=== PATIENT | male | born 1990 | race Two or more races ===

== ENCOUNTER 2017-07-26 09:23 | Inpatient (IN) | payer SELFPAY ==
[2017-07-26] MEDS ORDERED: NS 0.9% 1000 ML* 1,000 ML IV ONE (10:32)
[2017-07-26 11:03] LABS: ABS Basophils 0 10^3/ul (0-0.2); ABS Eosinophils 0.1 10^3/ul (0-0.6); ABS Monocytes 0.4 10^3/ul (0-0.8); ABS Neutrophils 5.1 10^3/ul (1.5-7.7); ABS Nucleated RBC 0 10^3/ul; Eosinophil % 1.7 % (0-6); Hematocrit 42 % (42-52); Hemoglobin 15.2 g/dl (14.0-18.0); Lymphocyte % 14.8 % (25-47); Mean Corpuscular HGB Conc 36 g/dl (31-36); Mean Corpuscular Hemoglobin 31 pg (27-31); Mean Corpuscular Volume 86 fL (80-94); Mean Platelet Volume 8.3 um3 (7.4-10.4); Nucleated Red Blood Cells % 0.4; Platelet Count 189 10^3/ul (150-450); Red Blood Count 4.92 10^6/ul (4.0-5.4); Red Cell Distribution Width 13 % (10.5-15); White Blood Count 6.6 10^3/ul (3.5-10.8)
--- NOTE | 2017-07-26 12:13 | RAD ---
HISTORY: Left thumb infection, right thumb injury COMPARISONS: None VIEWS: 2, Frontal and lateral views of the right hand FINDINGS: BONE DENSITY: Normal. BONES: There is no displaced fracture. There is no appreciable erosion or periosteal reaction. JOINTS: There is no arthropathy. ALIGNMENT: There is no dislocation. SOFT TISSUES: There is soft tissue swelling of the first digit. OTHER FINDINGS: None. IMPRESSION: 1. SOFT TISSUE SWELLING. NO ACUTE OSSEOUS INJURY. NO APPRECIABLE EROSION OR PERIOSTEAL REACTION. 2. PLAIN FILM FINDINGS OF OSTEOMYELITIS ARE RELATIVELY LATE FINDINGS. IF THERE IS PERSISTENT CLINICAL CONCERN FOR OSTEOMYELITIS, RECOMMEND CORRELATION WITH FOLLOWUP IMAGING, THREE-PHASE BONE SCANNING, WHITE BLOOD CELL SCAN, AND/OR MRI OF THE AFFECTED REGION.
[2017-07-26 12:32] LABS: EGFR Non-African American 138.9 (>60)
[2017-07-26] MEDS ORDERED: Morphine VIAL* 4 MG/ML VIAL (1 ml vial) IV ONE ×2 (12:58→13:16)
[2017-07-26] MEDS ORDERED: Ondansetron 40 MG VIAL* 2 MG/ML 20 ML VIAL IV PRN (13:39)
[2017-07-26] MEDS ORDERED: Ondansetron TAB* 4 MG PO PRN (13:39)
[2017-07-26] MEDS ORDERED: oxyCODONE/Acetamin 5/325 MG* TAB PO PRN ×2 (13:39)
[2017-07-26] MEDS ORDERED: diPHENhydraMINE PO* 25 MG PO PRN (13:39)
[2017-07-26] MEDS ORDERED: Acetaminophen TAB* 325 MG PO PRN (13:39)
[2017-07-26] MEDS ORDERED: Magnesium Hydroxide LIQ* 30 ML UDC PO PRN (13:39)
[2017-07-26] MEDS ORDERED: diPHENhydraMINE IV* 50 MG/ML 1 ml VIAL (BENADRYL) IV PRN (13:39)
[2017-07-26] MEDS ORDERED: Morphine VIAL* 4 MG/ML VIAL (1 ml vial) IV PRN (13:39)
[2017-07-26] MEDS ORDERED: Docusate CAP* 100 MG PO PRN (13:39)
[2017-07-26 13:42] LABS: Urine Appearance Clear; Urine Blood Negative (Negative); Urine Color Yellow; Urine Ketones Negative (Negative); Urine Protein Negative (Negative); Urine Specific Gravity 1.009 (1.010-1.030); Urine Urobilinogen Negative (Negative)
[2017-07-26 14:17] LABS: INR 1.02 (0.77-1.02)
--- NOTE | 2017-07-26 14:32 | CONSULT ---
Consult Consult: Admission H&P dictated. Will keep patient NPO, intended washout of right thumb today with Dr Marin.
[2017-07-26] MEDS ORDERED: Zosyn per Pharmacy* NOTE FOLLOW UP SCH (15:00)
--- NOTE | 2017-07-26 15:49 | ED ---
Tam Zamorano Angela, scribed for Sacha Pressley MD on 07/26/17 at 1031 . Skin Complaint - HPI Summary HPI Summary: This pt is a 27 y/o male presenting to [facility] c/o laceration to right thumb for the past 5 days. Pt reports he cut himself on the right thumb while chopping vegetables 5 days ago with a knife. He states that now this laceration is very swollen and is red. Pt notes it is very warm to touch. He has taken Advil for the pain. Pt denies taking any antibiotics. Denies chest pain, SOB, fever, chills, red streaks. He reports his last tetanus shot was 3 years ago. Denies any PMHx. NKDA. - History of Current Complaint Chief Complaint: EDExtremityUpper Stated Complaint: RT THUMB INJURY Hx Obtained From: Patient Onset/Duration: Started Days Ago, Still Present Timing: Lasting Days Current Severity: Severe Pain Intensity: 10 Pain Scale Used: 0-10 Numeric Skin Location: Hand - right thumb Character: Swelling, Pain, Redness, Painful Aggravating Symptom(s): Nothing Alleviating Symptom(s): OTC Meds - ibuprofen Associated Signs & Symptoms: Negative - Allergy/Home Medications Allergies/Adverse Reactions: Allergies Allergy/AdvReac Type Severity Reaction Status Date / Time No Known Allergies Allergy Verified 07/26/17 09:43 Home Medications: Home Medications NK [No Home Medications Reported] 07/26/17 [History Confirmed 07/26/17] PMH/Surg Hx/FS Hx/Imm Hx Endocrine/Hematology History: Denies: Hx Diabetes Cardiovascular History: Denies: Hx Hypertension - Surgical History Surgery Procedure, Year, and Place: none Infectious Disease History: No Infectious Disease History: Denies: Traveled Outside the [place] in Last 30 Days - Family History Known Family History: Negative: Hypertension, Diabetes - Social History Alcohol Use: Occasionally Substance Use Type: Reports: None Smoking Status (MU): Never Smoked Tobacco Review of Systems Negative: Fever, Chills Negative: Chest Pain Negative: Shortness Of Breath Gastrointestinal: Negative Genitourinary: Negative Skin: Other - laceration to right thumb, red and swelling around laceration All Other Systems Reviewed And Are Negative: Yes Physical Exam - Summary Physical Exam Summary: VITAL SIGNS: Reviewed. GENERAL: Patient is a well-developed and nourished male who is lying comfortable in the stretcher. Patient is not in any acute respiratory distress. HEAD AND FACE: No signs of trauma. No ecchymosis, hematomas or skull depressions. No sinus tenderness. EYES: PERRLA, EOMI x 2, No injected conjunctiva, no nystagmus. EARS: Hearing grossly intact. Ear canals and tympanic membranes are within normal limits. MOUTH: Oropharynx within normal limits. NECK: Supple, trachea is midline, no adenopathy, no JVD, no carotid bruit, no c- spine tenderness, neck with full ROM. CHEST: Symmetric, no tenderness at palpation LUNGS: Clear to auscultation bilaterally. No wheezing or crackles. CVS: Regular rate and rhythm, S1 and S2 present, no murmurs or gallops appreciated. ABDOMEN: Soft, non-tender. No signs of distention. No rebound no guarding, and no masses palpated. Bowel sounds are normal. EXTREMITIES: FROM in all major joints, no edema, no cyanosis or clubbing. NEURO: Alert and oriented x 3. No acute neurological deficits. Speech is normal and follows commands. SKIN: Dry and warm. RUE: Small laceration which is healing. Decreased ROM of right thumb secondary to pain. Right thumb swelling and tenderness. Triage Information Reviewed: Yes Vital Signs On Initial Exam: Initial Vitals Temp Pulse Resp BP Pulse Ox 97.8 F 71 16 137/96 100 07/26/17 09:38 07/26/17 09:38 07/26/17 09:38 07/26/17 09:38 07/26/17 09:38 Vital Signs Reviewed: Yes Diagnostics - Vital Signs Vital Signs Temp Pulse Resp BP Pulse Ox 07/26/17 09:38 97.8 F 71 16 137/96 100 - Laboratory Result Diagrams: 07/26/17 10:43 07/26/17 10:43 Lab Statement: Any lab studies that have been ordered have been reviewed, and results considered in the medical decision making process. - Radiology Right hand XR Xray Interpretation: Positive (See Comments) - IMPRESSION: 1. Soft tissue swelling. No acute osseous injury. No appreciable erosion or periosteal reaction. 2. Plain film findings or osteomyelitis are relatively late findings. If there is persistent clinical concern for osteomyelitis, recommend correlation with follow up imaging, three-phase bone scanning, white blood cell scan, and/or MRI of the affected region. Dr. Pressley has reviewed this radiology report. Radiology Interpretation Completed By: Radiologist Course/Dx - Course Assessment/Plan: Pt is a 27 y/o male who presents with laceration to right thumb for the past 5 days. Pt reports he cut himself on the right thumb while chopping vegetables 5 days ago with a knife. He states that now this laceration is very swollen and is red. Pt notes it is very warm to touch. He has taken Advil for the pain. Pt denies taking any antibiotics. Test results without any significant abnormalities except for increased ESR and CRP. Urinalysis is negative for UTI. Right hand XR shows 1. Soft tissue swelling. No acute osseous injury. No appreciable erosion or periosteal reaction. 2. Plain film findings or osteomyelitis are relatively late findings. If there is persistent clinical concern for osteomyelitis, recommend correlation with follow up imaging , three-phase bone scanning, white blood cell scan, and/or MRI of the affected region. Initially the pt was given IV fluids and was placed on Zosyn. I discussed the pts case with Dr. Nuñez, orthopedist, since I believe the pt needs a washout of the right thumb. I believe the pt has an infected right thumb and possibly tenosynovitis. Dr. Marin sent his PA, Lindsay Leiva, to see the pt and after her assessment they have accepted the pt to their services for further work up and management. Pt is hemodynamically stable, alert and oriented x3. - Diagnoses Provider Diagnoses: Cellulitis, Tenosynovitis - Physician Notifications Discussed Care Of Patient With: Gustavo Marin Time Discussed With Above Provider: 11:25 Instructed by Provider To: Other - I discussed pt care with Dr. Marin, orthopedist, who will consult on the pt. Discharge - Sign-Out/Discharge Documenting (check all that apply): Discharge/Admit/Transfer - Admit - Discharge Plan Condition: Stable Disposition: ADMITTED TO [facility] documentation as recorded by the Tam valladares Angela accurately reflects the service I personally performed and the decisions made by me, Sacha Pressley MD.
[2017-07-26] MEDS: NS 0.9% 1000 ML* 1,000 ML IV SCH (15:58)
[2017-07-26] MEDS ORDERED: ZOSYN 3.375 GM x ONE DOSE over 30 miuntes IVPB ×2 (16:00)
[2017-07-26] MEDS ORDERED: Buffered Lidocaine 0.9% SYRIN* 5 ML/SYR SYRINGE INTRADERM ONE (17:01)
[2017-07-26] MEDS ORDERED: Bupivacaine 0.25% SDV* 30 ML ONE (18:30)
[2017-07-26] MEDS: ZOSYN 3.375 GM Q8H per EXTENDED INFUSION IVPB SCH ×2 (19:44)
[2017-07-26] MEDS: Magnesium Hydroxide LIQ* 30 ML UDC PO SCH (19:51)
--- NOTE | 2017-07-26 20:42 | PN ---
Progress Note - Progress Note Date of Service: 07/26/17 Note: See full consult note by SEAN Morris. He has a right thumb infection that is draining purulence. He had a knife wound 5-6 days ago and it began to get more painful a couple of days after that. He had full motion prior to the infection setting in. A/P: R thumb abscess Plan for I&D this evening. I will peform this on the floor. We'll do twice daily warm soapy water soaks and antibiotics thereafter. Perhaps home on Monday. Follow up cultures.
--- NOTE | 2017-07-26 21:36 | HP ---
ADMISSION HISTORY AND PHYSICAL: DATE OF ADMISSION: 07/26/17 ATTENDING PROVIDER: Dr. Gustavo Marin.* (DICTATED BY SEAN LOCKETT) CHIEF COMPLAINT: Right thumb pain and swelling x5 days. HISTORY OF PRESENT ILLNESS: Mr. Encarnacion is a 27-year-old male who presented to the emergency room on 07/26/17 after 5 days of right thumb pain and swelling. The patient states that he cut himself while chopping vegetables 5 days ago with a knife. He did wash out the wound at that time. The very next day, his thumb became red and painful. The patient has taken Advil which does help to relieve the pain. He has not taken any antibiotics. He states that last night, he did feel as though he had fever and chills, but he did not take his temperature. Denies any chest pain, shortness of breath, diarrhea. The patient's last tetanus shot was 3 years ago. He has never had surgery in the past. He denies any current medical issues. His last meal was last night. He did drink a full Gatorade this morning. 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 He will be here for at least the next several weeks. He does not have a primary care provider. His home town is [place], [place]. PAST MEDICAL HISTORY: He has no known past medical history. PAST SURGICAL HISTORY: He never had surgery. MEDICATIONS: He takes no medications at home. ALLERGIES: He has no medication allergies. FAMILY HISTORY: The patient reports no illness in relatives. Also reports no negative side effects from anesthesia in any known relatives. SOCIAL HISTORY: Occasional alcohol use. Does not smoke tobacco. No substance use. The patient is right-handed. REVIEW OF SYSTEMS: General: The patient confirms subjective fever and chills last night. HEENT: No headache. Cardio: No chest pain. No irregular beats. No history of heart attack. Respiratory: No difficulty breathing. GI: No abdominal pain. No nausea, vomiting, or diarrhea. Musculoskeletal: Right thumb pain. Skin: Swelling and redness of right thumb with discharge. Hematology: No history of blood clot. Neuro: No history of stroke. PHYSICAL EXAMINATION GENERAL: The patient is well-appearing, in no acute distress. VITAL SIGNS: Pulse 59, oxygen saturation 98%, blood pressure 143/89, temperature 97.8. HEENT: Head is normocephalic, atraumatic. Extraocular movements intact. RESPIRATORY: Clear to auscultation bilaterally. No wheezes, rales, or rhonchi. CARDIAC: S1, S2. No audible murmur. No irregular beats. ABDOMEN: Soft, nontender. No masses. Bowel sounds normoactive throughout. EXTREMITIES: Moves left upper extremity as well as bilateral lower extremity as well. The patient's right thumb with circumferential swelling with erythema most prominently over the dorsum of the IP joint, which extends down into the base of the thumb to the wrist, but does not streak up the forearm. The patient is able to extend the digit both passively and actively. He has a great deal of pain with flexion. Sensation is intact throughout all 5 fingers, though he reports some decreased sensation at the distal aspect of the thumb. Capillary refill is less than 2 seconds distally. Radial pulse is 2+. Forearm is soft and supple. The patient has good range of motion at the wrist without pain as well as at the elbow without pain on the right upper extremity. He is severely tender to palpation over the dorsum of the IP joint of the thumb as well as the proximal phalanx in the MCP. He does have a roughly 0.5 cm healing laceration over the IP joint that is expressing purulent material. This material was cultured. LABORATORY STUDIES: White blood cell count is 6.6, hemoglobin is 15.2, hematocrit is 42, ESR is 28. INR 1.02. CRP 68.53. RADIOLOGY: Right hand x-ray shows soft tissue swelling. No acute osseous injury. No appreciable erosion or periosteal reaction. ASSESSMENT: Infected right thumb. PLAN: The patient will be taken to the operating room by Dr. Marin for irrigation and debridement on 07/26/17. He will be n.p.o. He will be started on Zosyn. Cultures have been sent to the lab for interpretation. Infectious Disease will be consulted. SEAN LOCKETT [id number]/CPS #: [id number] MTDD
[2017-07-27] MEDS: ZOSYN 3.375 GM Q8H per EXTENDED INFUSION IVPB SCH ×2 (04:21)
[2017-07-27 05:51] LABS: Hematocrit 41 % (42-52); Hemoglobin 14.7 g/dl (14.0-18.0); Mean Platelet Volume 8.2 um3 (7.4-10.4); Platelet Count 182 10^3/ul (150-450)
[2017-07-27 06:01] LABS: EGFR Non-African American 134.3 (>60)
--- NOTE | 2017-07-27 08:54 | PN ---
Progress Note - Progress Note Date of Service: 07/27/17 SOAP: Subjective: [Pt was seen this morning while soaking his thumb in the bathroom. Pt states he is having minimal pain in the thumb. Denies any chest pain, SOB. No numbness or tingling. ] Objective: [General: Pt is alert, awake and oriented. NAD MSK: Right thumb wound is present with no drainage. There is one suture in the middle present. Thumb continues to be swollen. Able to flex and extend at MCP joint of thumb. 2+ radial pulse. ] Vital Signs Temp 97.9 F 07/27/17 07:03 Pulse 50 07/27/17 07:03 Resp 16 07/27/17 08:00 BP 138/76 07/27/17 07:03 Pulse Ox 98 07/27/17 07:03 Intake & Output 07/26/17 07/27/17 07/27/17 18:59 06:59 18:59 Intake Total 1218 0 Output Total 400 100 Balance 1218 -400 -100 Weight 214 lb Intake: IV Fluids 1218 ABX - ZOSYN 105 NS (0.9%) 113 Oral 0 Output: Urine 400 100 Assessment: [S/P Right thumb I&D] Plan: [Continue with abx today - Zosyn Will await culture results and will modify abx based on information Pain meds prn Continue with soaks Possible discharge today or tomorrow. ]
[2017-07-27] MEDS: Magnesium Hydroxide LIQ* 30 ML UDC PO SCH ×2 (10:24→20:39)
[2017-07-27] MEDS ORDERED: Tetan/Diph/Pertus SYR(Tdap)* 0.5 ML SYR(BOOSTRIX) use SYR IM ONE (11:00)
[2017-07-27] MEDS: ceFAZolin 2 GM PREMIX (*) 2 GM/50 ML BAG IVPB SCH ×2 (11:53→20:13)
[2017-07-27] MEDS: NS 0.9% 1000 ML* 1,000 ML IV SCH (15:29)
--- NOTE | 2017-07-27 20:39 | OP ---
DATE OF OPERATION: 07/26/17 - ROOM #331 DATE OF : 88 SURGEON: Gustavo Marin MD TEST AND RESEARCH REACTOR OPERATOR: None. ANESTHESIOLOGIST: None. ANESTHESIA: Local only with digital block performed via 0.25% plain Marcaine. PRE-OP DIAGNOSIS: Right dorsal thumb abscess. POST-OP DIAGNOSIS: Right dorsal thumb abscess. OPERATIVE PROCEDURE: Incision and drainage of right dorsal thumb abscess. INDICATIONS: Hardik had a knife wound to the skin while he was cooking about 5 or 6 days ago. A couple of days after that it started getting more painful, it then really swelled up over the last couple of days, and started to drain purulence from a punctate spot where he had punctured the skin with the knife. He came to the emergency room, he was admitted. I told him we have to open it up and drain it little bit more and start some soaks. ESTIMATED BLOOD LOSS: 5 mL. COMPLICATIONS: None. FINDINGS: See above and below. DESCRIPTION OF PROCEDURE: Hardik was seen in this room, the hand was washed. Informed consent was obtained. A time-out was performed. I began by opening the area, where it was draining, about three-quarters of a centimeter going proximal on the radial aspect of the extensor tendon. Full- thickness flap was raised off the paratenon. A culture swab was introduced into the area and all the septations were broken up. The curved iris scissors were placed and in similar fashion septations were broken up. Once I had thoroughly unroofed the infected area and debrided it out, I had him soak the hand in warm soapy water for 10 minutes; again one culture had been sent. A finger tourniquet was placed. The extensor tendon was checked; it looked intact. Everything was looking clean, so I placed 1 nylon stitch loosely to reapproximate very loosely the skin edge, even soaked it for a few minutes longer. A dressing was placed. He tolerated this very well. POSTOPERATIVE PLAN: We will do another soak tonight, then twice daily warm soapy water soaks thereafter. He will get antibiotics. We will follow these cultures. Hopefully, we will get him home on Monday. [id number]/CPS #: [id number] DAVID
--- NOTE | 2017-07-27 21:12 | CONS ---
CONSULTATION REPORT: DATE OF CONSULT: 07/27/17 REQUESTING PROVIDER: SEAN Morris CONSULTING SERVICE: Infectious Disease. REASON FOR CONSULT: Right thumb infection. IMPRESSION: Right thumb abscess and cellulitis, status post incision and debridement at the bedside. Cultures growing methicillin-sensitive Staphylococcus aureus. RECOMMENDATION: Stop Zosyn. I will start cefazolin 2 g IV every 8 hours and follow the thumb exam here. Tetanus booster. HISTORY OF PRESENT ILLNESS: This is a 27-year-old man, who cut his right thumb with a knife while cooking on Monday. He washed out pretty good, but developed redness, pain, and swelling, so he came to the emergency room yesterday. His white count was 6, seen by Dr. Marin, who did a bedside I and D. Samples were sent, showing gram-positive cocci on the Gram stain and PCR Staph aureus positive, MRSA negative. He is on Zosyn, tolerating that well. He has had no fever here. He has not had infection like this in the past. He denies any antibiotic allergies. PAST MEDICAL HISTORY: Obesity. MEDICATIONS: 1. Zosyn 3.375 g IV every 8 hours by extended infusion. 2. Docusate. 3. Oxycodone as needed. ALLERGIES: No known drug allergies. SOCIAL HISTORY: He lives in [place]. He is here doing construction work. REVIEW OF SYSTEMS: A 10-point review of systems was all negative except as noted above. PHYSICAL EXAM: Vital Signs: Temperature is 36, heart rate 50, respiratory rate 18, blood pressure 140/70, oxygen saturation 98% on room air. In general, he is awake, not in distress. Neurologic: He is oriented x3, follows all commands. HEENT: There is no conjunctival hemorrhage. Oropharynx: Without lesions. Neck: Supple without mass. Heart: Regular rate and rhythm without murmurs, rubs, or gallops. Lungs: Clear to auscultation bilaterally. Abdomen : Soft, nontender, nondistended. Bowel sounds present. Skin: There is no rash. Musculoskeletal: Right index finger incision sutures, there is diffuse mild erythema with no drainage. LABORATORY DATA: Creatinine 0.7. CRP 70. White blood cell count 6, hemoglobin 15, platelets 189. Please see impressions and recommendations as outlined above. Thanks for asking me to see Mr. Encarnacion in consultation. [id number]/[facility] #: [id number] MTDD
[2017-07-28] MEDS: NS 0.9% 1000 ML* 1,000 ML IV SCH (03:24)
[2017-07-28] MEDS: ceFAZolin 2 GM PREMIX (*) 2 GM/50 ML BAG IVPB SCH ×2 (03:26→12:16)
[2017-07-28 05:40] LABS: Hematocrit 41 % (42-52); Hemoglobin 14.8 g/dl (14.0-18.0); Mean Platelet Volume 8.3 um3 (7.4-10.4); Platelet Count 195 10^3/ul (150-450)
[2017-07-28] MEDS: Magnesium Hydroxide LIQ* 30 ML UDC PO SCH (09:32)
[2017-07-28 11:23] VITALS: BP 151/88
--- NOTE | 2017-07-28 11:38 | PN ---
Progress Note - Progress Note Date of Service: 07/28/17 SOAP: Subjective: 27 y/o male s/p R thumb I&D 07/[address] Marin. Seen by DR. Marin today, cleared for D/C to home by Dr. Del Toro, OK with Keflex, will follow cultures. VSS afebrile overnight. Objective: General- Well appearing Vital Signs Temp 98.5 F 07/28/17 11:13 Pulse 65 07/28/17 11:13 Resp 16 07/28/17 11:13 BP 151/88 07/28/17 11:13 Pulse Ox 98 07/28/17 11:13 Intake & Output 07/27/17 07/28/17 07/28/17 18:59 06:59 18:59 Intake Total 2024 3499 Output Total 500 400 Balance 1524 3099 Intake: IV Fluids 944 994 ABX - CEFAZOLIN 55 NS (0.9%) 889 994 IVPB 100 55 ABX - CEFAZOLIN 55 ABX - ZOSYN 100 Oral 980 2450 Output: Urine 500 400 Other: Estimated Void Medium # Bowel Movements 3 Estimated Stool Amount Medium # Voids 3 Assessment: [S/P Right thumb I&D] Plan: - Home ABX- keflex - Cultures- + MSSA - Pain meds prn - OTC, percocet - Continue with soaks - D/C to home today, likely return to [place] this weekend, follow up with PCP, urgent care there for wound care, suture removal. - twice daily soaks. Acetaminophen (Tylenol Tab*) 650 mg PO Q4H PRN PRN Reason: FEVER/PAIN Diphenhydramine HCl (Benadryl Iv*) 25 mg IV Q6H PRN PRN Reason: itching Diphenhydramine HCl (Benadryl Po*) 25 mg PO Q6H PRN PRN Reason: itching Docusate Sodium (Colace Cap*) 100 mg PO BID PRN PRN Reason: CONSTIPATION Sodium Chloride (Ns 0.9% 1000 Ml*) 1,000 mls @ 100 mls/hr IV PER RATE PETEY Last Admin: 07/28/17 03:24 Dose: 100 mls/hr Lactated Ringer's (Lactated Ringers 1000 Ml Bag*) 1,000 mls @ 125 mls/hr IV PER RATE PETEY Cefazolin Sodium/Dextrose (Kefzol 2 Gm Premix(*)) 2 gm in 50 mls @ 100 mls/hr IVPB Q8H [facility] Last Admin: 07/28/17 03:26 Dose: 100 mls/hr Magnesium Hydroxide (Milk Of Magnesia Liq*) 30 ml PO BID [facility] Last Admin: 07/28/17 09:32 Dose: Not Given Magnesium Hydroxide (Milk Of Magnesia Liq*) 30 ml PO Q6H PRN PRN Reason: constipation Morphine Sulfate (Morphine Vial*) 2 mg IV Q2H PRN PRN Reason: PAIN - BREAKTHROUGH Ondansetron HCl (Zofran 40 Mg Vial*) 4 mg IV Q6H PRN PRN Reason: nausea Ondansetron HCl (Zofran Tab*) 4 mg PO Q6H PRN PRN Reason: NAUSEA Oxycodone/Acetaminophen (Percocet 5/325 Tab*) 2 tab PO Q4H PRN PRN Reason: PAIN - SEVERE Oxycodone/Acetaminophen (Percocet 5/325 Tab*) 1 tab PO Q4H PRN PRN Reason: Pain- moderate Last Admin: 07/26/17 19:48 Dose: 1 tab
== END 2017-07-28 13:15 | disposition home or self-care (01) | DRG 581 ==
LOC: ED 09:23 → SSU 13:39
PROVIDERS: ADMIT Orthopaedic Surgery Hand Surgery; ATTEND Orthopaedic Surgery Hand Surgery
PROC: 0J9J0ZZ Drainage of Right Hand Subcutaneous Tissue and Fascia, Open Approach (ICD-10-PCS; principal; 2017-07-26)
DX: L02.511 Cutaneous abscess of right hand (principal); S61.011A Laceration without foreign body of right thumb without damage to nail, initial encounter; W26.0XXA Contact with knife, initial encounter; B95.61 Methicillin susceptible Staphylococcus aureus infection as the cause of diseases classified elsewhere; Z72.89 Other problems related to lifestyle; Y92.009 Unspecified place in unspecified non-institutional (private) residence as the place of occurrence of the external cause; Y93.G3 Activity, cooking and baking
CPT/HCPCS: 36415; 80048; 80053; 81003; 83605; 85014; 85018; 85025; 85049; 85610; 85652; 86140; 87040; 87070; 87077; 87186; 87205; 87640; 87641; 90715; 99283; A9270-GY; J0690; J2270; J2543